=== PATIENT | male | born 1960 | race Caucasian/White ===

== ENCOUNTER 2020-04-23 13:30 | Inpatient (IN) | payer SELFPAY ==
[~2020-04-23] VITALS: Ht 187.9 cm; Wt 101.1 kg
--- NOTE | 2020-04-23 14:10 | ED General ---
General Chief Complaint: Neurological Problems Stated Complaint: REINIER LEG/LT ARM NUMBNESS; JBP 177/100 Source of Information: Patient History of Present Illness Date Seen by Provider: Apr 23, 2020 Time Seen by Provider: 13:45 Initial Comments Patient is a 52-year-old male who presents with multiple medical complaints. He complaints of bilateral extremity paresthesias starting late last night. Patient was sitting down at time paresthesias began. He does have a history of neuropathy of bilateral lower extremities. He denies lower extremity weakness or loss of sensation. Patient also reports intermittent left-sided chest pain with radiculopathy to left arm. Reports paresthesias without motor weakness to left upper extremity. Denies shortness breath, nausea vomiting, palpitations, sweats. No classic anginal symptoms. No history of CAD, PE, dissection or valvular heart disease. Patient does have history of cervical spine discectomy with fusion. Denies neck pain. No headache, blurred vision, abdominal pain, vomiting diarrhea, no Timing/Duration: 12-24 Hours Severity: Mild Modifying Factors: improves with Other Associated Systoms: Denies Symptoms Allergies and Home Medications Allergies Coded Allergies: No Known Drug Allergies (Unverified , 04/23/20) Patient Home Medication List Home Medication List Reviewed: Yes Review of Systems Review of Systems Constitutional: see HPI EENTM: see HPI Respiratory: see HPI Cardiovascular: see HPI Gastrointestinal: see HPI Genitourinary: see HPI Musculoskeletal: see HPI Skin: see HPI Psychiatric/Neurological: See HPI Hematologic/Lymphatic: See HPI Immunological/Allergic: see HPI All Other Systems Reviewed Negative Unless Noted: Yes Past Uzirbkp-Xttxdw-Vsvqmn Hx Past Med/Social Hx: Reviewed Nursing Past Med/Soc Hx Patient Social History Recent Foreign Travel: No Contact w/Someone Who Travel: No Physical Exam Vital Signs Vital Signs - First Documented 04/23/20 13:35 Temp 36.2 Pulse 116 Resp 16 B/P (MAP) 173/105 (127) Pulse Ox 97 O2 Delivery Room Air Capillary Refill : Height, Weight, BMI Height: '" Weight: lbs. oz. kg; BMI Method: General Appearance: Anxious Eyes: Bilateral Eye Normal Inspection, Bilateral Eye PERRL, Bilateral Eye EOMI HEENT: PERRL/EOMI, Pharynx Normal Neck: Full Range of Motion, Normal Inspection, Non Tender, Supple Respiratory: Chest Non Tender, Lungs Clear Cardiovascular: Regular Rate, Rhythm, No Edema, No Murmur Gastrointestinal: Normal Bowel Sounds, Non Tender, Soft Back: Normal Inspection, No CVA Tenderness Extremity: Normal Capillary Refill, Normal Inspection Neurologic/Psychiatric: Alert Skin: Normal Color, Warm/Dry Lymphatic: No Adenopathy Focused Exam Sepsis Stage: Ruled Out Progress/Results/Core Measures Suspected Sepsis SIRS Temperature: Pulse: Respiratory Rate: Laboratory Tests 04/23/20 14:10: White Blood Count 11.5H Blood Pressure / Mean: Laboratory Tests 04/23/20 14:10: Creatinine 1.02, Platelet Count 160, Total Bilirubin 0.7 Results/Orders Lab Results Laboratory Tests Test 04/23/20 14:10 Range/Units White Blood Count 11.5 H 4.3-11.0 10^3/uL Red Blood Count 5.24 4.35-5.85 10^6/uL Hemoglobin 16.9 13.3-17.7 G/DL Hematocrit 48 40-54 % Mean Corpuscular Volume 92 80-99 FL Mean Corpuscular Hemoglobin 32 25-34 PG Mean Corpuscular Hemoglobin Concent 35 32-36 G/DL Red Cell Distribution Width 13.2 10.0-14.5 % Platelet Count 160 130-400 10^3/uL Mean Platelet Volume 10.8 H 7.4-10.4 FL Immature Granulocyte % (Auto) 0 % Neutrophils (%) (Auto) 65 42-75 % Lymphocytes (%) (Auto) 25 12-44 % Monocytes (%) (Auto) 10 0-12 % Eosinophils (%) (Auto) 1 0-10 % Basophils (%) (Auto) 0 0-10 % Neutrophils # (Auto) 7.4 1.8-7.8 X 10^3 Lymphocytes # (Auto) 2.8 1.0-4.0 X 10^3 Monocytes # (Auto) 1.1 H 0.0-1.0 X 10^3 Eosinophils # (Auto) 0.1 0.0-0.3 10^3/uL Basophils # (Auto) 0.0 0.0-0.1 10^3/uL Immature Granulocyte # (Auto) 0.1 0.0-0.1 10^3/uL D-Dimer 0.47 0.00-0.49 UG/ML Sodium Level 138 135-145 MMOL/L Potassium Level 3.8 3.6-5.0 MMOL/L Chloride Level 106 98-107 MMOL/L Carbon Dioxide Level 20 L 21-32 MMOL/L Anion Gap 12 5-14 MMOL/L Blood Urea Nitrogen 11 7-18 MG/DL Creatinine 1.02 0.60-1.30 MG/DL Estimat Glomerular Filtration Rate > 60 BUN/Creatinine Ratio 11 Glucose Level 112 H 70-105 MG/DL Calcium Level 9.3 8.5-10.1 MG/DL Corrected Calcium 8.5-10.1 MG/DL Magnesium Level 1.7 1.6-2.4 MG/DL Total Bilirubin 0.7 0.1-1.0 MG/DL Aspartate Amino Transf (AST/SGOT) 24 5-34 U/L Alanine Aminotransferase (ALT/SGPT) 27 0-55 U/L Alkaline Phosphatase 81 40-136 U/L Troponin I < 0.30 <0.30 NG/ML Total Protein 7.4 6.4-8.2 GM/DL Albumin 4.6 H 3.2-4.5 GM/DL My Orders Orders - YESSY TAYLOR DO Fibrin Degradation Products (04/23/20 14:03) Cbc With Automated Diff (04/23/20 14:16) Comprehensive Metabolic Panel (04/23/20 14:16) Magnesium (04/23/20 14:16) Ct Head Wo (04/23/20 14:16) Thyroid Stimulating Hormone (04/23/20 14:16) Troponin I Fs (04/23/20 14:16) Ekg Tracing (04/23/20 14:16) Ct Cerv/Thoracic/Lumbar Wo (04/23/20 16:03) Aspirin Chewable Tablet (Baby Aspirin Ch (04/23/20 17:30) Vital Signs/I&O 04/23/20 13:35 Temp 36.2 Pulse 116 Resp 16 B/P (MAP) 173/105 (127) Pulse Ox 97 O2 Delivery Room Air Capillary Refill : Departure Communication (Admissions) Patient with paresthesias involving lower extremities and left arm. No motor weakness. Currently denies chest pain. EKG and troponin are negative. CT shows subacute infarct involving the right basal ganglia. Will admit to the hospital service. Impression Primary Impression: Acute ischemic stroke Disposition: ADMITTED INPATIENT Condition: Stable Admissions Decision to Admit Reason: Admit from ER (General) Transfer Transfer Reason: Exceeds level of care Time Spoke to Accepting Phy: 17:15 Transfer Time: 17:32 (Dr. France) Method of Transfer: EMS Departure-Patient Inst. Referrals: BARTOLO PARISH MD (PCP/Family) Primary Care Physician YESSY TAYLOR DO Apr 23, 2020 14:10
[2020-04-23 14:35] LABS: HEMOGLOBIN 16.9 G/DL (13.3-17.7); MEAN CORPUSCULAR HEMOGLOBIN 32 PG (25-34); WHITE BLOOD COUNT 11.5 10^3/uL (4.3-11.0)
[2020-04-23 14:36] LABS: HEMATOCRIT 48 % (40-54); MEAN CORPUSCULAR HGB CONC 35 G/DL (32-36); MEAN CORPUSCULAR VOLUME 92 FL (80-99)
[2020-04-23 14:37] LABS: BASOPHILS % (AUTO) 0 % (0-10); EOSINOPHILS # (AUTO) 0.1 10^3/uL (0.0-0.3); EOSINOPHILS % (AUTO) 1 % (0-10); LYMPHOCYTES # (AUTO) 2.8 X 10^3 (1.0-4.0); LYMPHOCYTES % (AUTO) 25 % (12-44); MEAN PLATELET VOLUME 10.8 FL (7.4-10.4); MONOCYTES # (AUTO) 1.1 X 10^3 (0.0-1.0); MONOCYTES % (AUTO) 10 % (0-12); NEUTROPHILS # (AUTO) 7.4 X 10^3 (1.8-7.8); NEUTROPHILS % (AUTO) 65 % (42-75); PLATELET COUNT 160 10^3/uL (130-400)
[2020-04-23 14:54] LABS: POTASSIUM 3.8 MMOL/L (3.6-5.0); SODIUM 138 MMOL/L (135-145)
[2020-04-23 14:55] LABS: ALANINE AMINOTRANSFERASE 27 U/L (0-55); ALKALINE PHOSPHATASE 81 U/L (40-136); BILIRUBIN,TOTAL 0.7 MG/DL (0.1-1.0); BUN/CREATININE RATIO 11; CALCIUM 9.3 MG/DL (8.5-10.1); CARBON DIOXIDE 20 MMOL/L (21-32); CHLORIDE 106 MMOL/L (98-107); CREATININE SERUM 1.02 MG/DL (0.60-1.30); GFR ESTIMATED > 60; GLUCOSE 112 MG/DL (70-105); MAGNESIUM 1.7 MG/DL (1.6-2.4); TOTAL PROTEIN 7.4 GM/DL (6.4-8.2)
[2020-04-23 14:56] LABS: ALBUMIN 4.6 GM/DL (3.2-4.5)
--- NOTE | 2020-04-23 16:49 | Diagnostic Imaging Report ---
PROCEDURE: CT head without contrast. TECHNIQUE: Multiple contiguous axial images were obtained through the brain without the use of intravenous contrast. Auto Exposure Controls were utilized during the CT exam to meet ALARA standards for radiation dose reduction. INDICATION: Altered mental status. COMPARISON: None. FINDINGS: No intracranial hemorrhage, mass effect, hydrocephalus, or extra-axial fluid collections. Mild generalized cerebral and cerebellar parenchymal volume loss. Mild leukoaraiosis. Low-attenuation changes in the right basal ganglia are age indeterminate. Presumed chronic lacunar infarct in the left basal ganglia. Osseous structures are intact. Visualized paranasal sinuses and mastoids are clear. IMPRESSION: 1. Low-attenuation ill-defined region in the right basal ganglia is age indeterminate. Although this may represent a chronic lacunar infarct, a more acute process cannot be excluded. There is a more chronic appearing infarct versus prominent perivascular space in the left basal ganglia. Recommend further evaluation with MRI. 2. Mild generalized cerebral and cerebellar parenchymal volume loss. Mild leukoaraiosis. Dictated by: Dictated on workstation # [id number]
--- NOTE | 2020-04-23 16:54 | Diagnostic Imaging Report ---
INDICATION: Back pain. EXAMINATION: Axial imaging through the cervical, thoracic and lumbar spine was performed without contrast. Sagittal and coronal reformations were also performed. FINDINGS: CT cervical: Postoperative changes of ACDF with anterior plate and screws transfixing C6-C7 levels noted. Hardware appears to be intact. There is degenerative disease at C5-C6 level with disc space narrowing and marginal spurring. No fractures are seen. Prevertebral tissues are within normal limits. Odontoid is intact. IMPRESSION: Postop and degenerative changes. No acute bony abnormality is detected. CT thoracic spine: Curvature and alignment of the thoracic spine is normal. Vertebral body heights are maintained. There is multilevel degenerative disc disease with variable disc space narrowing and marginal spurring. Paraspinous tissues are unremarkable. IMPRESSION: Thoracic spondylosis. No acute bony abnormality is detected. CT lumbar spine: Curvature and alignment of the lumbar spine is normal. Vertebral body heights are maintained. No acute compression fracture is seen. There is some mild degenerative changes at all levels of the lumbar spine with marginal spurring. There is significant facet arthropathy at the L5-S1 level, particularly on the right. The paraspinous tissues are unremarkable. IMPRESSION: Lumbar spondylosis. No acute bony abnormality is detected. Dictated by: Dictated on workstation # [id number]
[2020-04-23] MEDS ORDERED: ASPIRIN 81 MG CHEW (CHILDREN'S ASA) PO ONE (17:30)
--- NOTE | 2020-04-23 21:51 | NUR ---
RAJAN BARLOW admitted to room 404-1, with an admitting diagnosis of CVA, on 04/23/20 from [facility] via EMS, accompanied by STAFF.RAJAN BARLOW introduced to surroundings, call light, bed controls, phone, TV, temperature control, lights, meal times, smoking policy, visitor policy, side rail policy, bathrooms and showers. Patient Rights given to patient in the handbook. RAJAN BARLOW verbalizes understanding that [facility] is not responsible for the loss or damage to any personal effects or valuables that are kept in the patients posession during their hospitalization. The following
[2020-04-23] MEDS ORDERED: CATHETER FLUSH 10 ML SYR IV PRN (22:30)
[2020-04-23 22:45] VITALS: BP 173/90
[2020-04-23 23:35] VITALS: BP 157/85
[2020-04-24 03:40] VITALS: BP 167/87
[2020-04-24] MEDS: CATHETER FLUSH 10 ML SYR IV SCH ×2 (05:26→14:38)
[2020-04-24] MEDS ORDERED: CALCIUM CARBONATE 500 MG (TUMS) TAB.CHEW PO PRN (06:00)
[2020-04-24] MEDS ORDERED: HYDROcodone/APAP 5 MG/325 MG (LORTAB) TAB PO PRN (06:00)
[2020-04-24] MEDS ORDERED: MELATONIN 3 MG TABLET PO PRN (06:00)
[2020-04-24] MEDS ORDERED: ONDANSETRON 4 MG/2 ML (SDV) Z0FRAN IVP PRN (06:00)
[2020-04-24] MEDS ORDERED: ENOXAPARIN 40 MG/0.4 ML (LOVENOX) SYR SC SCH (06:00)
[2020-04-24] MEDS ORDERED: DOCUSATE SODIUM 100 MG (COLACE) CAP PO PRN (06:00)
[2020-04-24] MEDS ORDERED: ACETAMINOPHEN 500 MG TAB (TYLENOL) PO PRN (06:00)
[2020-04-24] MEDS ORDERED: ALPRAZolam 0.25 MG (XANAX) TAB PO PRN (06:00)
[2020-04-24] MEDS ORDERED: diphenhydrAMINE 25 MG TAB (BENADRYL) PO PRN (06:00)
[2020-04-24] MEDS ORDERED: ENOXAPARIN 40 MG/0.4 ML (LOVENOX) SYR ONE (06:16)
[2020-04-24 06:36] LABS: BASOPHILS % (AUTO) 0 % (0-10); EOSINOPHILS # (AUTO) 0.2 10^3/uL (0.0-0.3); EOSINOPHILS % (AUTO) 2 % (0-10); HEMATOCRIT 48 % (40-54); HEMOGLOBIN 16.6 g/dL (13.3-17.7); LYMPHOCYTES # (AUTO) 3.5 10^3/uL (1.0-4.0); LYMPHOCYTES % (AUTO) 33 % (12-44); MEAN CORPUSCULAR HEMOGLOBIN 33 pg (25-34); MEAN CORPUSCULAR HGB CONC 35 g/dL (32-36); MEAN CORPUSCULAR VOLUME 95 fL (80-99); MEAN PLATELET VOLUME 10.9 fL (9.0-12.2); MONOCYTES # (AUTO) 1.2 10^3/uL (0.0-1.0); MONOCYTES % (AUTO) 11 % (0-12); NEUTROPHILS # (AUTO) 5.8 10^3/uL (1.8-7.8); NEUTROPHILS % (AUTO) 54 % (42-75); PLATELET COUNT 152 10^3/uL (130-400); WHITE BLOOD COUNT 10.8 10^3/uL (4.3-11.0)
[2020-04-24 06:48] LABS: CHLORIDE 107 MMOL/L (98-107)
[2020-04-24 06:49] LABS: ALBUMIN 4.1 GM/DL (3.2-4.5); POTASSIUM 4.1 MMOL/L (3.6-5.0); SODIUM 137 MMOL/L (135-145)
[2020-04-24 06:50] LABS: CALCIUM 8.8 MG/DL (8.5-10.1)
[2020-04-24 06:51] LABS: GLUCOSE 99 MG/DL (70-105); TOTAL PROTEIN 7.1 GM/DL (6.4-8.2); TRIGLYCERIDES 69 MG/DL (<150); VLDL CHOLESTEROL 14 MG/DL (5-40)
[2020-04-24 06:52] LABS: CARBON DIOXIDE 20 MMOL/L (21-32)
[2020-04-24 06:55] LABS: ALKALINE PHOSPHATASE 65 U/L (40-136); CREATININE SERUM 1.01 MG/DL (0.60-1.30); GFR ESTIMATED > 60
[2020-04-24 06:56] LABS: BUN/CREATININE RATIO 11; CHOLESTEROL 154 MG/DL (< 200)
[2020-04-24 06:57] LABS: HDL CHOLESTEROL 32 MG/DL (40-60)
[2020-04-24 06:58] LABS: ALANINE AMINOTRANSFERASE 26 U/L (0-55)
[2020-04-24] MEDS ORDERED: FLU QUADRIvalent (3YOA+) 60 mcg/0.5 ml 2020-21 (AFLURIA) IM ONE (07:30)
[2020-04-24 07:36] VITALS: BP 154/97
--- NOTE | 2020-04-24 08:47 | Diagnostic Imaging Report ---
PROCEDURE: MR imaging of the brain without contrast. TECHNIQUE: Multiplanar, multisequence MR imaging of the brain was performed without contrast. INDICATION: Left arm weakness and bilateral leg weakness. No prior studies are available for comparison. Diffusion weighted images demonstrate a small area of diffusion restriction in the right thalamus consistent with an acute/subacute infarct. No other areas of diffusion restriction are identified. Mild periventricular white matter changes are noted. There is no midline shift. No acute intra-axial or extra-axial hemorrhage is detected. Corpus callosum is unremarkable. Sella and parasellar structures are unremarkable. IMPRESSION: 1. Acute lacunar infarct right thalamus. No acute intracranial hemorrhage detected. 2. White matter changes, likely owing to chronic microvascular ischemia. Dictated by: Dictated on workstation # [id number]
--- NOTE | 2020-04-24 08:51 | Physical Therapy Evaluation ---
PT Evaluation-General Medical Diagnosis Admission Date Apr 23, 2020 at 20:55 Medical Diagnosis: bilateral leg and left arm numbness Onset Date: Apr 23, 2020 Therapy Diagnosis Therapy Diagnosis: normal functional mobility Precautions Precautions/Isolations: Standard Precautions Referral Physician: Edilma Reason for Referral: Evaluation/Treatment Medical History Pertinent Medical History: Neuropathy Reviewed History: Yes Social History Home: Single Level Current Living Status: Alone Entry Into Home: Ramp Prior Prior Level of Function SCALE: Activities may be completed with or without assistive devices. 5-Vzrmvhkxum-xahzept completes the activity by him/herself with no assistance from a helper. 5-Set-up or Clean-up Assistance-helper sets up or cleans up; patient completes activity. [place] assists only prior to or following the activity. 4-Supervision or Touching Assistance-helper provides verbal cues and/or touching/steadying and/or contact guard assistance as patient completes activity. Assistance may be provided throughout the activity or intermittently. 3-Partial/Moderate Assistance-helper does LESS THAN HALF the effort. [place] lifts, holds or supports trunk or limbs, but provides less than half the effort. 2-Substantial/Maximal Assistance-helper does MORE THAN HALF the effort. [place] lifts or holds trunk or limbs and provides more than half the effort. 9-Uxellqodq-bamweo does ALL the effort. Patient does none of the effort to complete the activity. Or, the assistance of 2 or more helpers is required for the patient to complete the activity. If activity was not attempted, code reason: 7-Patient Refused. 9-Not Applicable-not attempted and the patient did not perform the activity before the current illness, exacerbation or injury. 10-Not Attempted due to Environmental Limitations-(lack of equipment, weather restraints, etc.). 88-Not Attempted due to Medical Conditions or Safety Concerns. Bed Mobility: 6 Transfers (B,C,W/C): 6 Gait: 6 Stairs: 6 Indoor Mobility (Ambulation): Independent Stairs: Independent PT Evaluation-Current Subjective Patient in bed pre tx, agrees to PT, has no complaints of pain Pt/Family Goals to be independent at home Objective Patient Orientation: Person, Place, Situation ROM/Strength ROM Lower Extremities WNL Strength Lower Extremities 5/5 gross BLE Neuromuscular (Tone, Coordination, Reflexes) Patient has normal peripheral vision and tracking, no obvious facial asymmetry. Sensory Vision: Functional Hearing: Functional Sensation Right Lower Extremit: Intact Sensation Left Lower Extremity: Intact Transfers Roll Left to Right (QC): 6 Sit to Lying (QC): 6 Lying to Sitting/Side of Bed(Q: 6 Sit to Stand (QC): 6 Chair/Fdu-gn-Dblka Xfer(QC): 6 Patient states he has been ambulating to the restroom on his own without difficulty. Patient has no complaints of dizziness or lightheadedness when standing Gait Does the Patient Walk?: Yes Mode of Locomotion: Walk Anticipated Mode of Locomotion: Walk Walk 10 feet (QC): 6 Walk 50 ft with 2 Turns(QC): 6 Walk 150 ft (QC): 6 Distance: 150' Gait Assistive Device: None Comments/Gait Description normal, independent ambulation without an assistive device Balance Sitting Static: Normal Sitting Dynamic: Normal Standing Static: Normal Standing Dynamic: Normal Assessment/Needs Patient has normal functional mobility Rehab Potential: Good PT Plan Problem List Problem List: Other Treatment/Plan Treatment Plan: Discontinue PT Treatment Plan: Other Treatment Duration: Apr 24, 2020 Frequency: Patient and/or Family Agrees t: Yes Discharge Recommendations Plan DC Therapy Discharge Recommendati: Home & Family Time/GCodes Time In: 0836 Time Out: 0846 Total Billed Treatment Time: 10 Total Billed Treatment 1 visit NÉSTOR RAHMAN PT Apr 24, 2020 08:51
[2020-04-24] MEDS ORDERED: ASPIRIN E.C. 81 MG (ECOTRIN) TAB PO SCH (09:00)
[2020-04-24] MEDS ORDERED: SENNA W/DOCUSATE (SENOKOT S) TABLET PO SCH (09:00)
[2020-04-24] MEDS ORDERED: ACET325T38 PO (10:19)
[2020-04-24] MEDS ORDERED: FAMO-144 PO (10:19)
--- NOTE | 2020-04-24 10:19 | NUR ---
I SPOKE WITH THE PATIENT TO COMPLETE THIS MED REC. PATIENT ISN'T TAKING ANY PRESCRIPTION MEDICATIONS AT THIS TIME. OTC: TYLENOL FAMOTIDINE
[2020-04-24] MEDS ORDERED: ACETAMINOPHEN 325 MG TABLET PO PRN (11:00)
[2020-04-24] MEDS ORDERED: lisINopril 10 MG (PRINIVIL) TABLET PO ONE (11:00)
[2020-04-24] MEDS ORDERED: ATOR80TA76 PO (11:01)
[2020-04-24] MEDS ORDERED: LISI10TA2 PO (11:01)
[2020-04-24] MEDS ORDERED: ASPI-1238 PO (11:01)
[2020-04-24] MEDS ORDERED: FAMOTIDINE 20 MG (PEPCID) TABLET PO PRN (11:09)
[2020-04-24 12:03] VITALS: BP 179/93
--- NOTE | 2020-04-24 12:10 | Short Stay Summary-Hospitalist ---
NUBIA MARIE MED STUDENT 04/24/20 1210: History of Present Illness HPI/Chief Complaint Mr Monroe was admitted yesterday through ED due to some new neurological deficits that he experienced. He had bilateral extremity paresethia and has a history of neuropathy. He did not seem to have any motor weakness. No chest pain and a negative ECG. He received a CT of his head that showed an acute lacunar infarct in the R thalamus. He states today that he is feeling very well. His symptoms seem to have completely resolved and he does not have any complaints. Tiffanie do does not have any trouble eating, using the restroom, or walking around. He does have a history of smoking. Source: patient Date Seen 04/24/20 Time Seen by a Provider: 09:40 Attending Physician Paige Elizalde Pankaj K MD Referring Physician Date of Admission Apr 23, 2020 at 20:55 Home Medications & Allergies Home Medications Reviewed patient Home Medication Reconciliation performed by pharmacy medication reconciliations collision technician and/or nursing. Patients Allergies have been reviewed. Allergies Allergies Coded Allergies No Known Drug Allergies (Htmakbbawh65/17/20) Past Blusffy-Znnubq-Bhwwwg Hx Past Med/Social Hx: Reviewed Nursing Past Med/Soc Hx Patient Social History Alcohol Use: Denies Use Recreational Drug Use: No Smoking Status: Current Everyday Smoker Type Used: Cigarettes 2nd Hand Smoke Exposure: No Recent Foreign Travel: No Contact w/other who traveled: No Recent Hopitalizations: No Recent Infectious Disease Expo: No Seasonal Allergies Seasonal Allergies: No Review of Systems Constitutional: no symptoms reported EENTM: no symptoms reported Respiratory: no symptoms reported Cardiovascular: no symptoms reported Gastrointestinal: no symptoms reported Genitourinary: no symptoms reported Musculoskeletal: no symptoms reported Skin: no symptoms reported Psychiatric/Neurological: No Symptoms Reported Physical Exam Physical Exam Vital Signs Vital Signs - First Documented 04/23/20 13:35 Temp 36.2 Pulse 116 Resp 16 B/P (MAP) 173/105 (127) Pulse Ox 97 O2 Delivery Room Air Capillary Refill : Less Than 3 Seconds Height, Weight, BMI Height: '" Weight: lbs. oz. kg; 28.63 BMI Method: General Appearance: No Apparent Distress, WD/WN, Anxious Eyes: Bilateral Eye Normal Inspection, Bilateral Eye PERRL, Bilateral Eye EOMI HEENT: PERRL/EOMI, TMs Normal, Pharynx Normal Neck: Full Range of Motion, Normal Inspection, Non Tender, Supple Respiratory: Chest Non Tender, Lungs Clear, Normal Breath Sounds, No Accessory Muscle Use, No Respiratory Distress Cardiovascular: Regular Rate, Rhythm, No Edema, No Gallop, No Murmur, Normal Peripheral Pulses Gastrointestinal: Normal Bowel Sounds, Non Tender, Soft Rectal: Deferred Back: Normal Inspection, No CVA Tenderness Extremity: Normal Capillary Refill, Normal Inspection, No Pedal Edema Neurologic/Psychiatric: Alert, Oriented x3, No Motor/Sensory Deficits, Normal Mood/Affect, technical services assistant II-XII Norm as Tested Skin: Normal Color, Warm/Dry Lymphatic: No Adenopathy Results Results/Procedures Labs Laboratory Tests 04/23/20 14:10 04/24/20 06:11 Patient resulted labs reviewed. Short Stay Diagnosis Discharge Diagnosis-Short Stay Admission Diagnosis Suspected Stroke Final Discharge Diagnosis Acute lacunar infarct R thalamus Conclusion Plan Sent patient home with Rx for Lisinopril Prescribe Lipitor Encourage smoking cessation Consult cardiology Monitor for any change or worsening of neurological status D/C if cardiology clears Diagnosis/Problems Diagnosis/Problems (1) Smoker (2) Hypertension (3) Acute ischemic stroke Status: Acute Clinical Quality Measures DVT/VTE Risk/Contraindication: Risk Factor Score Per Nursin RFS Level Per Nursing on Admit: 2=Moderate Supervisory-Addendum Brief Verification & Attestation Participated in pt care: history, physical Personally performed: exam, history Care discussed with: other Procedures: n/a ELIZALDEAPRIL CARTWRIGHTAlise RIOS 04/25/20 0555: History of Present Illness HPI/Chief Complaint CC: Stroke like symptoms HPI: This is a 60yoWM clinic pt of Dr. Lake who presents with concerning stroke symptoms to the ER. He went to the [facility] ER with complaints of B/L weakness and unable to speak for approximately 24hrs so he was not a TPA candidate. I went ahead and ordered and echocardiogram and carotid ultrasound which were normal. Dr. Johnson saw him in consultation. MRI confirmed stroke and Lisinopril 10mg daily along with baby aspirin and statin therapy and a 30 days monitor was arranged with close follow up with PCP. Smoking cessation was aggressively counseled. Past Gvxvmit-Jhtwkk-Hbscqm Hx Past Med/Social Hx: Reviewed Nursing Past Med/Soc Hx, Reviewed and Corrections made Patient Social History Marrital Status: single Employed/Student: unemployed Review of Systems Constitutional: see HPI, malaise, weakness Physical Exam Physical Exam General Appearance: No Apparent Distress, WD/WN Eyes: Bilateral Eye Normal Inspection, Bilateral Eye PERRL HEENT: PERRL/EOMI, TMs Normal, Normal ENT Inspection, Pharynx Normal Neck: Full Range of Motion, Normal Inspection, Non Tender, Supple, Carotid Bruit Respiratory: Chest Non Tender, Lungs Clear, Normal Breath Sounds, No Accessory Muscle Use, No Respiratory Distress Cardiovascular: Regular Rate, Rhythm, No Edema, No Gallop, No JVD, No Murmur, Normal Peripheral Pulses Gastrointestinal: Normal Bowel Sounds, No Organomegaly, No Pulsatile Mass, Non Tender, Soft Back: Normal Inspection, No CVA Tenderness, No Vertebral Tenderness Extremity: Normal Capillary Refill, Normal Inspection, Normal Range of Motion, Non Tender, No Calf Tenderness, No Pedal Edema Neurologic/Psychiatric: Alert, Oriented x3, No Motor/Sensory Deficits, Normal Mood/Affect Skin: Normal Color, Warm/Dry Lymphatic: No Adenopathy Short Stay Diagnosis Discharge Diagnosis-Short Stay Admission Diagnosis CVA HTN Smoker Final Discharge Diagnosis CVA HTN Smoker Conclusion Plan DC home 30 day monitor Statin ASA Diagnosis/Problems Diagnosis/Problems (1) Acute ischemic stroke Status: Acute (2) Smoker (3) Hypertension Supervisory-Addendum Brief Verification & Attestation Participated in pt care: history, MDM, physical Personally performed: exam, history, MDM, supervision of care Care discussed with: Medical Student Procedures: n/a Results interpretation: Verified all documentation Verification and Attestation of Medical Student E/M Service A medical student performed and documented this service in my presence. I reviewed and verified all information documented by the medical student and made modifications to such information, when appropriate. I personally performed the physical exam and medical decision making. Paige Elizalde, Apr 25, 2020,05:55 NUBIA MARIE MED STUDENT Apr 24, 2020 12:10 PAIGE ELIZALDE DO Apr 25, 2020 05:55
--- NOTE | 2020-04-24 13:46 | Occ Therapy Progress Note ---
Therapy Progress Note OT orders received and pt's chart reviewed. OT visited with pt who states he is not having any difficulty with ADLs or functional mobility at this time, he has been up around his room, and goes to the bathroom without difficulty. He is hoping to discharge home today. Pt's UE ROM/strength are within functional limits. Pt feels like he is at his PLOF and doesn't require OT services. Pt is currently at his PLOF, and independent with all ADLS, no skilled OT services are indicated, d/c from OT. 1, visit 1319 ANICETO MATHEW OT Apr 24, 2020 13:46
--- NOTE | 2020-04-24 14:05 | Diagnostic Imaging Report ---
PROCEDURE: US carotid duplex, bilateral. TECHNIQUE: Multiple real-time grayscale images were obtained over the carotid arteries in various projections, bilaterally. Additional spectral analysis and color Doppler duplex images were also obtained. INDICATION: CVA. FINDINGS: There is mild plaquing in the distal common carotid arteries and carotid bifurcations extending into the proximal internal and external carotid arteries. Velocities are normal bilaterally. No velocity elevation or stenosis is seen. Both vertebral arteries demonstrate antegrade flow. IMPRESSION: Mild bilateral carotid plaques. There is no evidence of a hemodynamically significant stenosis. Parameters based on the consensus panel Holliday-Scale and Doppler ultrasound criteria published April 2003, Radiology, Volume 229. DOPPLER (peak systolic velocity M/S Right Left CCA .96 .94 ICA Proximal .63 .60 ICA Mid .59 .74 ICA Distal .50 .86 RATIO .6 .92 ECA 1.0 1.1 VERT .60 .61 Dictated by: Dictated on workstation # [id number]
--- NOTE | 2020-04-24 15:40 | NUR ---
TREY/OJ visited with the patient for discharge planning. Plan: Patient will return home at time of discharge. The patient is following up with Dr. Cueto's office for a heart monitor. Home: Patient lives in Public housing in [place]. He lives alone with his cat. Equipment: None. Home Health/Application Integration Architect/ Caregiver: None. Resources: The patient does not receive any financial assistance from the state or government. TREY/OJ discussed applying for Medicaid. TREY/OJ brought the patient an application for Medicaid and the application for food stamps. TREY/OJ uses [facility] for medications. He reports that he does not have any trouble affording them at this time. Supports: The patient has a niece and nephew that help support him when needed. The patient reports that he has a brother who sends him enough money to get by. His sister has recently moved into a halfway. The patient reports that another support is his housing neighbors. He states they will bring him food when needed and are the one's who called EMS. No further needs right now.
[2020-04-24 15:43] VITALS: BP 153/87
[2020-04-24 16:00] VITALS: BP 153/87
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
[2020-04-25] MEDS ORDERED: lisINopril 10 MG (PRINIVIL) TABLET PO SCH (09:00)
== END 2020-04-24 17:55 | disposition home or self-care (01) | DRG 65 ==
LOC: ER FS 13:34 → 4TH 20:55
PROVIDERS: ADMIT Internal Medicine; ATTEND Internal Medicine
DX: I63.9 Cerebral infarction, unspecified (principal); G82.20 Paraplegia, unspecified; R47.01 Aphasia; G62.9 Polyneuropathy, unspecified; F17.210 Nicotine dependence, cigarettes, uncomplicated; Z98.1 Arthrodesis status; Z23 Encounter for immunization
CPT/HCPCS: 36415; 70450; 70551; 72125; 72128; 72131; 80053; 80061; 83735; 84443; 84484; 85025; 85379; 90686; 93306; 93880

== ENCOUNTER 2020-04-25 12:30 | Outpatient (RCR) | payer SELFPAY ==
[~2020-04-25 12:30] MED LIST: ACET325T38 PO; ASPI-1238 PO; ATOR80TA76 PO; FAMO-144 PO; LISI10TA25 PO
== END 2020-07-24 | disposition home or self-care (01) ==
LOC: CARD 12:30
PROVIDERS: ATTEND Internal Medicine Interventional Cardiology
DX: I63.89 Other cerebral infarction (principal)
CPT/HCPCS: 93270

== ENCOUNTER → 2020-09-09 | Outpatient (CLI) | payer OTHER ==
[~2020-09-09] VITALS: Ht 187 cm; Wt 90.0 kg
[~2020-09-09] MED LIST changes: +CATHETER FLUSH 10 ML SYR IV PRN; +REGADENOSON 0.4 MG/5 ML SYR (LEXISCAN) IV ONE
[2020-09-09 09:53] VITALS: BP 206/85
--- NOTE | 2020-09-09 19:56 | Cardiology Stress Test Report ---
Stress Test Report Date of Procedure/Referring: Date of Procedure: Sep 09, 2020 Elyssa Lopez Admitting Physician Rudi Lake MD Indications: cp Baseline Heart Rate: 95 Baseline Blood Pressure: Blood Pressure Systolic: 206 Blood Pressure Diastolic: 85 Baseline Vitals Vital Signs Date Time Temp Pulse Resp B/P (MAP) Pulse Ox O2 Delivery O2 Flow Rate FiO2 09/09/20 09:53 88 206/85 (125) Baseline EKG: Baseline EKG: NSR Summary After explaining the procedure to the patient, he signed a consent and then brought to the stress nuclear laboratory. Patient received 0.4 mg Lexiscan for stress test, ECG, heart rate and blood pressure were monitored continuously. Resting and stress dose of radio tracer w ere injected, imaging was acquired and reviewed in short axis, horizontal long axis and vertical long axis views. TID: 0.97 SSS: 1 SDS: 1 EF: 64 1. Patient tolerated Lexiscan well 2. Diaphragmatic attenuation with typical male pattern no significant ischemia or infarction on SPECT images 3. Normal left ventricular size, EF 64% JA CARVALHO MD Sep 09, 2020 19:56
== END ==
LOC: CARD 08:00
PROVIDERS: ATTEND Physician Assistant
DX: R07.9 Chest pain, unspecified (principal)
CPT/HCPCS: 78452; 93017; A9502